=== PATIENT | male | born 1945 | race Caucasian/White ===

== ENCOUNTER 2022-04-07 12:38 | Emergency (ER) | payer OTHER ==
[~2022-04-07] VITALS: Ht 167.6 cm; Wt 52.6 kg
[2022-04-07 12:46] VITALS: BP_SYST 140
--- NOTE | 2022-04-07 14:14 | NUR ---
RECEIVED PT AAOX4. PT HAS L UPPER FOOT SWELLING, DISCOLORATION. SITE NOT HOT, FOOT AND LOWER ANKLE TRACE EDEMA. RESP E/U. NO R/A. DENIES N/V/C/D. PT STATES HE HAS FOOT PAIN 2/, NO MEDICATION NEEDED.
--- NOTE | 2022-04-07 14:30 | NUR ---
COLD PRESS APPLIED TO L UPPER FOOT.
--- NOTE | 2022-04-07 15:12 | NUR ---
DR. JERRY AT BEDSIDE PT WILL HAVE U/S FOR L FOOT SWELLING, SUSPECTS SUPERFICIAL BLOOD CLOT. PT AGREES TO POC.
[2022-04-07 17:39] VITALS: BP_SYST 117
--- NOTE | 2022-04-07 17:42 | NUR ---
Patient given written and verbal discharge instructions and verbalizes understanding. ER MD discussed with patient the results and treatment provided. Patient in stable condition. ID arm band removed. Rx of given. Patient educated on pain management and to follow up with PMD. Pain Scale 0/10. Opportunity for questions provided and answered. Medication side effect fact sheet provided.
== END 2022-04-07 17:39 | disposition home or self-care (01) ==
LOC: SED 12:38
DX: I82.812 Embolism and thrombosis of superficial veins of left lower extremity (principal); R22.42 Localized swelling, mass and lump, left lower limb
CPT/HCPCS: 93971; 99284